=== PATIENT | male | born 1945 | race Caucasian/White ===

== ENCOUNTER 2016-11-21 12:08 | Emergency (ER) | payer BC ==
[~2016-11-21] VITALS: Ht 172.7 cm; Wt 57.6 kg
[2016-11-21] MEDS ORDERED: DOXAZOSIN MESYLA1 MG ORAL (12:20)
[2016-11-21] MEDS ORDERED: CARBIDOPA-LEVO1 EA14 PO (12:20)
[2016-11-21] MEDS ORDERED: AMANTADINE100 M2 ORAL (12:20)
[2016-11-21] MEDS ORDERED: DICLOFENAC POTA50 MG PO (12:21)
[2016-11-21] MEDS ORDERED: ENTACAPONE200 MG PO (12:21)
--- NOTE | 2016-11-21 13:55 | Emergency Room Report ---
History of Present Illness General Chief Complaint: General Complaint Source: Patient Present Illness HPI This patient states that he noticed his vein on his left scalp was a little larger than usual. He had never noticed this pain. He denies pain. He denies headache. He denies blurry vision. He denies injury. He has no other complaints. Allergies: Coded Allergies: No Known Allergies (Unverified , 11/21/16) Patient History Past Medical History: see triage record, other - Parkinson's, prostate CA Social History: Denies: alcohol use, drug use, smoking Reviewed Nursing Documentation: PMH: Agreed, PSxH: Agreed Nursing Documentation-PM Past Medical History: No History, Except For Hx Cancer: Yes - prostate CA Review of Systems All Other Systems: negative except mentioned in HPI Physical Exam Vital Signs Date Time Temp Pulse Resp B/P Pulse Ox O2 Delivery O2 Flow Rate FiO2 11/21/16 12:14 97.9 116 16 145/87 95 Room Air Sp02 EP Interpretation: reviewed, normal General Appearance: no apparent distress, alert, GCS 15, non-toxic Head: normocephalic, atraumatic, other - Normal bilateral scalp veins. Soft, non-tender, no erythema. Eyes: bilateral eye PERRL, bilateral eye normal inspection ENT: hearing grossly normal, normal pharynx, no angioedema, normal voice Neck: full range of motion, supple/symm/no masses Respiratory: no respiratory distress, no retraction, no accessory muscle use, speaking full sentences Cardiovascular #1: no edema Rectal: deferred Musculoskeletal: back normal, gait/station normal, normal range of motion, non- tender Neurologic: alert, oriented x3, responsive, motor strength/tone normal, sensory intact, speech normal Psychiatric: judgement/insight normal, memory normal, mood/affect normal, no suicidal/homicidal ideation Skin: normal color, no rash, warm/dry, well hydrated Medical Decision Making Diagnostic Impression: Primary Impression: Normal exam ER Course This patient has a normal examination. The pains that he patient is concerned about are normal. They are not distended or erythematous. I do not suspect thrombophlebitis. I do not suspect temporal arteritis. The patient's temporal artery is normal and nontender. The patient also does not have a history concerning for temporal arteritis. I do not feel that any further evaluation is indicated from the emergency department. The patient is instructed to followup with her primary care physician. No emergency medical condition is identified. Last Vital Signs Date Time Temp Pulse Resp B/P Pulse Ox O2 Delivery O2 Flow Rate FiO2 11/21/16 12:14 97.9 116 16 145/87 95 Room Air Disposition: HOME, SELF-CARE Condition: Stable Referrals: [facility],REFERRING (PCP) MARIALUISA LOPEZ D.O. Nov 21, 2016 13:54
[2016-11-21 14:16] VITALS: BP 143/82
== END 2016-11-21 14:18 | disposition home or self-care (01) ==
LOC: EMR 12:40
DX: Z04.8 Encounter for examination and observation for other specified reasons (principal); G20 Parkinson's disease; Z85.46 Personal history of malignant neoplasm of prostate
CPT/HCPCS: 99282

== ENCOUNTER 2019-12-15 02:44 | Emergency (ER) | payer BC, MEDICARE ==
[~2019-12-15] VITALS: Ht 172.7 cm; Wt 59.9 kg
[~2019-12-15 02:44] MED LIST: AMANTADINE100 M2 ORAL; CARBIDOPA-LEVO1 EA14 PO; DICLOFENAC POTA50 MG PO; DOXAZOSIN MESYLA1 MG ORAL; ENTACAPONE200 MG PO
--- NOTE | 2019-12-15 03:00 | NUR ---
ED Nurse Note: PT WALKED IN TO ED C/O L UPPER LEG DISCOMFORT ONSET 1 HR. PT REPORTS FEELING LIGHTHEADED AND TAKES ELIQUIS FOR CLOTS D/T PREVIOUS HX CLOTS. DENIES SOB OR CHEST PAIN. AAOX4, AMBULATORY, ERMD AT BEDSIDE. EKG DONE AT BEDSIDE.
[2019-12-15] MEDS ORDERED: ELIQUIS5 MG PO (03:04)
[2019-12-15] MEDS ORDERED: FLOMAX0.4 MG ORAL (03:04)
[2019-12-15] MEDS ORDERED: CHLORTHALIDONE25 MG ORAL (03:04)
--- NOTE | 2019-12-15 03:15 | NUR ---
ED Nurse Note: BLOOD COLLECTED AND SENT TO LAB
[2019-12-15 03:19] VITALS: BP 164/92
--- NOTE | 2019-12-15 03:20 | NUR ---
ED Nurse Note: pt consent signed for cta. pt verbalized understanding of procedure and denies allergies to contrast
[2019-12-15] MEDS ORDERED: Omnipaque 350 100ml vial INJ PRN (03:30)
[2019-12-15 03:33] LABS: EOSINOPHILS % (AUTO) 3.8 % (0.0-3.0); HEMATOCRIT 46.8 % (42.0-52.0); HEMOGLOBIN 15.5 G/DL (14.2-18.0); LYMPHOCYTES % (AUTO) 18.8 % (20.0-45.0); MEAN CORPUSCULAR VOLUME 97 FL (80-99); MONOCYTES % (AUTO) 10.2 % (1.0-10.0); NEUTROPHILS % (AUTO) 66.3 % (45.0-75.0); PLATELET COUNT 140 K/UL (150-450); RED BLOOD COUNT 4.83 M/UL (4.70-6.10); RED CELL DISTRIBUTION WIDTH 11.6 % (11.6-14.8); WHITE BLOOD COUNT 5.4 K/UL (4.8-10.8)
[2019-12-15 03:44] LABS: ANION GAP 10 mmol/L (5-15); BLOOD UREA NITROGEN 32 mg/dL (7-18); CALCIUM 8.8 MG/DL (8.5-10.1); CARBON DIOXIDE 31 MMOL/L (21-32); CHLORIDE 102 MMOL/L (98-107); CREATININE 1.4 MG/DL (0.55-1.30); POTASSIUM 3.5 MMOL/L (3.5-5.1); SODIUM 143 MMOL/L (136-145)
[2019-12-15 03:57] LABS: ALANINE AMINOTRANSFERASE 12 U/L (12-78); ALBUMIN 4.4 G/DL (3.4-5.0); ALBUMIN/GLOBULIN RATIO 1.4 (1.0-2.7); ALKALINE PHOSPHATASE 76 U/L (46-116); ASPARTATE AMINO TRANSFERASE 18 U/L (15-37); BILIRUBIN,TOTAL 0.5 MG/DL (0.2-1.0)
--- NOTE | 2019-12-15 04:01 | NUR ---
ED Nurse Note: pt's 's number: Summer #[phone] home telephone number: #[phone]
--- NOTE | 2019-12-15 04:25 | NUR ---
ED Nurse Note: pt went to ct
--- NOTE | 2019-12-15 05:49 | Diagnostic Imaging Report ---
EXAM: CT Angiography Chest With Intravenous Contrast CLINICAL HISTORY: CP TECHNIQUE: Axial computed tomographic angiography images of the chest with intravenous contrast. CTDI is 3.80 mGy and DLP is 121.90 mGy-cm. One or more of the following dose reduction techniques were used: automated exposure control, adjustment of the mA and/or kV according to patient size, use of iterative reconstruction technique. MIP reconstructed images were created and reviewed. COMPARISON: No relevant prior studies available. FINDINGS: LUNGS: Moderate centrilobular emphysematous changes. Dependent atelectasis at the lung bases. Pleural calcifications along the lateral aspects of the right and left upper lobes, right greater than left. The tracheal bronchial tree is patent. No pleural effusion or pneumothorax. HEART: Within normal limits. No pericardial effusion. VASCULATURE: No acute pulmonary embolism. Atherosclerotic changes of the aorta, with coronary involvement. THYROID: Within normal limits. MEDIASTINUM + LYMPHADENOPATHY: There are no pathologically enlarged mediastinal, hilar, or axillary lymph nodes. Calcified paraesophageal lymph nodes. SUPERIOR ABDOMEN: The included portions of the superior abdomen are within normal limits. MUSCULOSKELETAL: Degenerative changes of the spine. Small bone island in the T7 vertebral body. Mild bilateral gynecomastia. IMPRESSION: No acute pulmonary embolism. Moderate centrilobular emphysematous changes. See above for all remaining findings.
[2019-12-15 05:57] VITALS: BP 143/78
[2019-12-15] MEDS ORDERED: ALBUTEROL SULF8.5 G1 INH (06:01)
[2019-12-15 06:07] VITALS: BP 143/78
--- NOTE | 2019-12-15 06:07 | NUR ---
ER DISCHARGE NOTE: Patient is cleared to be discharged per ERMD, pt is aox4, on room air, with stable vital signs. pt was given dc and prescription instructions, pt was able to verbalize understanding, pt id band and iv site removed without complications. pt is able to ambulate with steady gait. pt took all belongings.
--- NOTE | 2019-12-16 09:44 | Emergency Room Report ---
History of Present Illness General Chief Complaint: Pain Present Illness HPI Patient is a 74-year-old male presents after increased anxiety. He reports having feeling more anxious. States he has had episodes of this in the past.He also reports having increased twitching to his muscles. Had prior history of Parkinson's disease. He had reportedly been compliant with his medications. He denies any nausea or vomiting. Denies any cough. Denies being a smoker. Allergies: Coded Allergies: No Known Allergies (Unverified , 11/21/16) COVID-19 Screening Contact w/high risk pt: No Recent Travel to affected area: No Experienced COVID-19 symptoms?: No COVID-19 Testing performed DRAW IN HAND: No Patient History Past Medical History: see triage record Reviewed Nursing Documentation: PMH: Agreed; PSxH: Agreed Nursing Documentation-PMH Hx Cancer: Yes - prostate CA Review of Systems All Other Systems: negative except mentioned in HPI Physical Exam Vital Signs Date Time Temp Pulse Resp B/P (MAP) Pulse Ox O2 Delivery O2 Flow Rate FiO2 12/15/19 02:55 97.9 100 19 166/93 (117) 97 Room Air Sp02 EP Interpretation: reviewed, normal General Appearance: normal inspection, well appearing, no apparent distress, alert, GCS 15, Chronically Ill Head: atraumatic ENT: normal ENT inspection, hearing grossly normal, normal voice Neck: normal inspection, full range of motion, supple, no bony tend Respiratory: normal inspection, lungs clear, normal breath sounds, no respiratory distress, no retraction, no wheezing Cardiovascular #1: regular rate, rhythm, no edema Gastrointestinal: normal inspection, normal bowel sounds, non tender, soft, no guarding, no hernia Genitourinary: no CVA tenderness Musculoskeletal: normal inspection, back normal, normal range of motion Neurologic: alert, motor strength/tone normal, press hand supervisor III-XII nml as tested, oriented x3, responsive, speech normal, normal inspection Psychiatric: normal inspection, judgement/insight normal, mood/affect normal Medical Decision Making Diagnostic Impression: Primary Impression: COPD (chronic obstructive pulmonary disease) Additional Impressions: Anxiety Parkinson disease ER Course Patient presented for increased muscle twitching. Differential diagnosis include was not limited to medication reaction, anxiety, pulmonary embolism among others. Because of complexity of patient's case laboratory tests and imaging studies were ordered. Laboratory testing was unremarkable and troponin was noted to be negative. CT of the chest read by radiology showed centrilobular emphysema without evidence of acute pulmonary embolism. EKG interpreted by me showed normal sinus rhythm without acute ST changes. Biatrial enlargement. Patient was noted to have some muscle tremors in the emergency department which appear to be related to his prior diagnosis of Parkinson's disease. Patient was offered admission for further work-up of anxiety and advised that this may be cardiac in nature. Patient indicated understanding of this concern and states he felt better and wished to leave and did not want to be hospitalized. All questions were answered. Patient appears to be competent to make his own decisions. Patient was discharged home with his . He was advised to return if worse. Patient was given prescription for albuterol due to CT finding showing emphysematous changes. Patient does not show any evidence of shortness of breath or desaturation. Labs Test 12/15/19 03:10 White Blood Count 5.4 K/UL (4.8-10.8) Red Blood Count 4.83 M/UL (4.70-6.10) Hemoglobin 15.5 G/DL (14.2-18.0) Hematocrit 46.8 % (42.0-52.0) Mean Corpuscular Volume 97 FL (80-99) Mean Corpuscular Hemoglobin 32.1 PG (27.0-31.0) Mean Corpuscular Hemoglobin Concent 33.1 G/DL (32.0-36.0) Red Cell Distribution Width 11.6 % (11.6-14.8) Platelet Count 140 K/UL (150-450) Mean Platelet Volume 7.2 FL (6.5-10.1) Neutrophils (%) (Auto) 66.3 % (45.0-75.0) Lymphocytes (%) (Auto) 18.8 % (20.0-45.0) Monocytes (%) (Auto) 10.2 % (1.0-10.0) Eosinophils (%) (Auto) 3.8 % (0.0-3.0) Basophils (%) (Auto) 1.0 % (0.0-2.0) D-Dimer < 0.19 mg/L FEU Sodium Level 143 MMOL/L (136-145) Potassium Level 3.5 MMOL/L (3.5-5.1) Chloride Level 102 MMOL/L (98-107) Carbon Dioxide Level 31 MMOL/L (21-32) Anion Gap 10 mmol/L (5-15) Blood Urea Nitrogen 32 mg/dL (7-18) Creatinine 1.4 MG/DL (0.55-1.30) Estimat Glomerular Filtration Rate 49.8 mL/min (>60) Glucose Level 148 MG/DL (74-106) Calcium Level 8.8 MG/DL (8.5-10.1) Total Bilirubin 0.5 MG/DL (0.2-1.0) Aspartate Amino Transf (AST/SGOT) 18 U/L (15-37) Alanine Aminotransferase (ALT/SGPT) 12 U/L (12-78) Alkaline Phosphatase 76 U/L (46-116) Troponin I 0.000 ng/mL (0.000-0.056) C-Reactive Protein, Quantitative < 0.4 mg/dL (0.00-0.90) Pro-B-Type Natriuretic Peptide 67 pg/mL (0-125) Total Protein 7.6 G/DL (6.4-8.2) Albumin 4.4 G/DL (3.4-5.0) Globulin 3.2 g/dL Albumin/Globulin Ratio 1.4 (1.0-2.7) Lipase 138 U/L (73-393) EKG Diagnostic Results Rate: normal Rhythm: NSR ST Segments: no acute changes Last Vital Signs Date Time Temp Pulse Resp B/P (MAP) Pulse Ox O2 Delivery O2 Flow Rate FiO2 12/15/19 06:07 98.3 86 19 143/78 98 Room Air Status: improved Disposition: HOME, SELF-CARE Condition: Stable Scripts Albuterol Sulfate* (Albuterol Sulfate Hfa*) 8.5 Gm Hfa.aer.ad 2 PUFF INH Q4H, #1 INH Prov: Herman Santiago MD 12/15/19 Referrals: NON PHYSICIAN (PCP) Patient Instructions: Chronic Obstructive Pulmonary Disease Additional Instructions: Follow up with your doctor for recheck. Return if worse. Herman Santiago MD Dec 16, 2019 09:44
== END 2019-12-15 06:10 | disposition home or self-care (01) ==
LOC: EMR 03:30
DX: F41.9 Anxiety disorder, unspecified (principal); J44.9 Chronic obstructive pulmonary disease, unspecified; G20 Parkinson's disease; Z85.46 Personal history of malignant neoplasm of prostate
CPT/HCPCS: 36415; 71275; 80053; 83690; 83880; 84484; 85025; 85379; 86140; 93005; 99284; J7040; Q9967

== ENCOUNTER 2019-12-26 16:05 | Emergency (ER) | payer MEDICARE ==
[~2019-12-26] VITALS: Ht 172.7 cm; Wt 59.9 kg
[~2019-12-26 16:05] MED LIST changes: +ALBUTEROL SULF8.5 G1 INH; +CHLORTHALIDONE25 MG ORAL; +ELIQUIS5 MG PO; +FLOMAX0.4 MG ORAL
[2019-12-26 16:26] VITALS: BP 153/85
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
--- NOTE | 2019-12-26 17:09 | Diagnostic Imaging Report ---
EXAM: CT Head Without Intravenous Contrast CLINICAL HISTORY: INJ TECHNIQUE: Axial computed tomography images of the head/brain without intravenous contrast. CTDI is 53 mGy and DLP is 992 mGy-cm. One or more of the following dose reduction techniques were used: automated exposure control, adjustment of the mA and/or kV according to patient size, use of iterative reconstruction technique. COMPARISON: No relevant prior studies available. FINDINGS: Brain: Unremarkable. No hemorrhage. No significant white matter disease. No edema. Ventricles: Unremarkable. No ventriculomegaly. Bones/joints: Unremarkable. No acute fracture. Soft tissues: Unremarkable. Sinuses: Unremarkable as visualized. No acute sinusitis. Mastoid air cells: Unremarkable as visualized. No mastoid effusion. IMPRESSION: 1. No acute intracranial abnormality. 2. Unremarkable study.
--- NOTE | 2019-12-26 17:41 | Diagnostic Imaging Report ---
EXAM: CT Chest Without Intravenous Contrast CLINICAL HISTORY: INJ TECHNIQUE: Axial computed tomography images of the chest without intravenous contrast. CTDI is 3.5 mGy and DLP is 243 mGy-cm. One or more of the following dose reduction techniques were used: automated exposure control, adjustment of the mA and/or kV according to patient size, use of iterative reconstruction technique. COMPARISON: 12/15/2019 FINDINGS: Limitations: Study limited due to lack of IV contrast. Lungs: Unremarkable. No mass. No consolidation. Pleural space: Unremarkable. No pneumothorax. No significant effusion. Heart: Mild coronary artery calcifications. No significant pericardial effusion. Bones/joints: Unremarkable. No acute fracture. No dislocation. Soft tissues: Gynecomastia. Correlate with exposure history and presentation, has etiologies are myriad. Vasculature: Unremarkable. No thoracic aortic aneurysm. Lymph nodes: Unremarkable. No enlarged lymph nodes. Other findings: Scattered ASVD. IMPRESSION: 1. Study limited due to lack of IV contrast. 2. No acute traumatic injury. 3. Mild coronary artery calcifications. 4. Gynecomastia. Correlate with exposure history and presentation, has etiologies are myriad. EXAM: CT Abdomen and Pelvis Without Intravenous Contrast CLINICAL HISTORY: INJ TECHNIQUE: Axial computed tomography images of the abdomen and pelvis without intravenous contrast. CTDI is 3.5 mGy and DLP is 243 mGy-cm. One or more of the following dose reduction techniques were used: automated exposure control, adjustment of the mA and/or kV according to patient size, use of iterative reconstruction technique. Coronal and sagittal reformatted images were created and reviewed. COMPARISON: No relevant prior studies available. FINDINGS: Lung bases: Unremarkable. No mass. No consolidation. ABDOMEN: Liver: Unremarkable. Gallbladder and bile ducts: Unremarkable. No calcified stones. No ductal dilation. Pancreas: Unremarkable. No ductal dilation. Spleen: Unremarkable. No splenomegaly. Adrenals: Unremarkable. No mass. Kidneys and ureters: Unremarkable. No obstructing stones. No hydronephrosis. Stomach and bowel: Colonic diverticulosis without acute diverticulitis. Large colonic stool burden. PELVIS: Appendix: No findings to suggest acute appendicitis. Bladder: Left posterior lateral urinary bladder diverticula suggesting increased urinary bladder outlet pressures. No stones. Reproductive: Unremarkable as visualized. ABDOMEN and PELVIS: Intraperitoneal space: Unremarkable. No free air. No significant fluid collection. Bones/joints: Mild degenerative spine findings. No acute fracture. No dislocation. Soft tissues: Right anterolateral abdominal wall operative findings likely representing hernia repair. Vasculature: Unremarkable. No abdominal aortic aneurysm. Lymph nodes: Unremarkable. No enlarged lymph nodes. IMPRESSION: 1. No acute traumatic injury. 2. Left posterior lateral urinary bladder diverticula suggesting increased urinary bladder outlet pressures. 3. Colonic diverticulosis without acute diverticulitis. 4. Large colonic stool burden. 5. Right anterolateral abdominal wall operative findings likely representing hernia repair.
[2019-12-26 17:59] VITALS: BP 153/85
== END 2019-12-26 18:00 | disposition home or self-care (01) ==
LOC: EMR 16:54
DX: S20.219A Contusion of unspecified front wall of thorax, initial encounter (principal); V43.52XA Car driver injured in collision with other type car in traffic accident, initial encounter; Y92.410 Unspecified street and highway as the place of occurrence of the external cause; G20 Parkinson's disease; Z85.46 Personal history of malignant neoplasm of prostate; Z86.718 Personal history of other venous thrombosis and embolism; Z79.01 Long term (current) use of anticoagulants; N62 Hypertrophy of breast; K57.90 Diverticulosis of intestine, part unspecified, without perforation or abscess without bleeding
CPT/HCPCS: 70450; 71270; 74178; 93005; 99284; Q9967